=== PATIENT | female | born 1965 | race Caucasian/White ===

== ENCOUNTER → 2018-05-08 13:16 | Outpatient (CLI) | payer SELFPAY ==
[2018-05-13 14:34] LABS: HPV Reflexed? NOT INDICATED
== END ==
PROVIDERS: Visit Provider Obstetrics & Gynecology
DX: Z12.4 Encounter for screening for malignant neoplasm of cervix (principal)
CPT/HCPCS: 88175; G0145

== ENCOUNTER → 2019-01-06 09:18 | Outpatient (CLI) | payer SELFPAY ==
[2019-01-06 11:09] LABS: Estradiol 109.4 pg/mL
[2019-01-06 11:16] LABS: Progesterone Level 0.44 ng/mL (See Comment)
== END ==
PROVIDERS: Visit Provider Obstetrics & Gynecology
DX: N92.0 Excessive and frequent menstruation with regular cycle (principal); E28.2 Polycystic ovarian syndrome
CPT/HCPCS: 36415; 82670; 84144

== ENCOUNTER → 2019-01-10 14:02 | Outpatient (CLI) | payer SELFPAY ==
--- NOTE | 2019-01-10 12:00 | EMB_PTH ---
PATIENT: BEN RAMIREZ LOC: [facility] U#:[id number] AGE/SX: 60/F ROOM: RE01/10/[address]: Dr. Carmen Goncalves MD : [id number] BED: DIS: SPEC #: [id number] RECD: 01/10/19 13:35 STATUS: LISETTE TERESE #: [id number] PRIETO: 01/10/19 12:[address]: Carmen Goncalves DEPT: SURGICAL PATHOLOGY RECD BY: Isaac Gerard Tissues: Endometrium, NOS Procedures: Surgery Specimen Level IV HEADER OPERATION: Endometrial biopsy PRE-OP DIAGNOSIS: Abnormal uterine bleeding TISSUE SUBMITTED: Endometrial biopsy MICROSCOPIC DIAGNOSIS Endometrium, biopsy: Proliferative endometrium with minimal disorder. Rare strips of benign superficial endocervix. AM:tamar 01/13/19 MICROSCOPIC DESCRIPTION Slides are reviewed. GROSS DESCRIPTION Received is one container labeled with the patient's name and not further designated. The specimen consists of multiple fragments of hemorrhagic mucoid tissue that in aggregate measure 3 x 2.5 x 0.3 cm. The entire specimen is submitted in one cassette. / SJ:tamar 01/10/19 TC:5 [facility]: [id number]
== END ==
PROVIDERS: Referring Provider Obstetrics & Gynecology; Visit Provider Obstetrics & Gynecology
DX: N93.9 Abnormal uterine and vaginal bleeding, unspecified (principal)
CPT/HCPCS: 88305

== ENCOUNTER → 2021-01-12 | Outpatient (CLI) | payer SELFPAY ==
[2021-01-14 22:14] LABS: HPV APTIMA, High Risk Negative (Negative)
== END | disposition home or self-care (01) ==
LOC: LABSPEC 09:43
PROVIDERS: Visit Provider Obstetrics & Gynecology
DX: Z12.4 Encounter for screening for malignant neoplasm of cervix (principal)
CPT/HCPCS: 87624; 88175; G0145